=== PATIENT | female | born 1995 | race Caucasian/White ===

== ENCOUNTER 2024-12-13 00:13 | Emergency (ER) | payer OTHER, SELFPAY ==
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
[2024-12-13 00:20] VITALS: BP 107/58; PULSE 67; RESP 16; TEMP 36.6; O2SAT 99; BMI 23.0
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
[2024-12-13] MEDS: Lidocaine HCl 1 % MPF 5 ML VIAL SUBCUT (03:50)
[2024-12-13] MEDS: Diphth,Pertus(ACell),Tet Adult 0.5 ML SYRINGE IM (03:51)
[2024-12-13] MEDS: Morphine Sulfate ER 15 MG TABLET.ER 10 MG PO (03:51)
[2024-12-13 04:22] VITALS: BP 107/58; PULSE 67; RESP 16; TEMP 36.6; O2SAT 99
== END 2024-12-13 04:15 | disposition home or self-care (01) ==
PROVIDERS: Emergency Provider Emergency Medicine Emergency Medical Services; PCP Family Medicine
DX: S50.812A Abrasion of left forearm, initial encounter (principal); S50.811A Abrasion of right forearm, initial encounter; S40.212A Abrasion of left shoulder, initial encounter; S80.212A Abrasion, left knee, initial encounter; S00.81XA Abrasion of other part of head, initial encounter; V18.0XXA Pedal cycle driver injured in noncollision transport accident in nontraffic accident, initial encounter; Y93.55 Activity, bike riding; Y92.488 Other paved roadways as the place of occurrence of the external cause; Y99.8 Other external cause status; Z23 Encounter for immunization
CPT/HCPCS: 12001; 16030; 73562; 90471; 90715; 96372; 99284; J2003; J2270

== ENCOUNTER → 2024-12-13 01:00 | Outpatient (BNV) | payer OTHER, SELFPAY | PROVIDERS: Emergency Provider Emergency Medicine Emergency Medical Services; PCP Family Medicine; Visit Provider Radiology Diagnostic Radiology | DX: R22.42 Localized swelling, mass and lump, left lower limb (principal); V18.0XXA Pedal cycle driver injured in noncollision transport accident in nontraffic accident, initial encounter | CPT/HCPCS: 73562 ==